=== PATIENT | female | born 1965 | race Caucasian/White ===

== ENCOUNTER → 2023-08-09 17:42 | Outpatient (REF) | payer BC, SELFPAY | LOC: WDC 17:42 | PROVIDERS: ATTENDING PHYSICIAN Obstetrics & Gynecology Gynecology; FAMILY PHYSICIAN Physician Assistant Medical | DX: Z12.31 Encounter for screening mammogram for malignant neoplasm of breast (principal); Z01.419 Encounter for gynecological examination (general) (routine) without abnormal findings | CPT/HCPCS: 77063; 77067 ==

== ENCOUNTER → 2023-12-27 16:11 | Outpatient (REF) | payer BC, SELFPAY | LOC: RAD 16:11 | PROVIDERS: ATTENDING PHYSICIAN Physician Assistant Medical | DX: M25.511 Pain in right shoulder (principal) | CPT/HCPCS: 73030 ==

== ENCOUNTER → 2024-08-12 15:33 | Outpatient (REF) | payer BC, SELFPAY | LOC: WDC 15:33 | PROVIDERS: ATTENDING PHYSICIAN Obstetrics & Gynecology Gynecology | DX: Z12.31 Encounter for screening mammogram for malignant neoplasm of breast (principal) | CPT/HCPCS: 77063; 77067 ==

== ENCOUNTER → 2025-01-22 08:56 | Outpatient (REF) | payer BC, SELFPAY | LOC: WDC 08:56 | PROVIDERS: ATTENDING PHYSICIAN Obstetrics & Gynecology Gynecology | DX: R92.30 Dense breasts, unspecified (principal) | CPT/HCPCS: 76641 ==